=== PATIENT | female | born 1955 | race Hispanic/Latino ===

== ENCOUNTER 2022-07-10 02:42 | Emergency (ER) | payer MEDICARE ==
[~2022-07-10] VITALS: Ht 165.1 cm; Wt 89.8 kg
[2022-07-10 03:15] LABS: BASOPHILS % (AUTO) 0.7 % (0.0-5.0); EOSINOPHILS % (AUTO) 3.1 % (0.0-8.0); HEMATOCRIT 43.3 % (36-48); LYMPHOCYTES % (AUTO) 28.3 % (21.0-51.0); MEAN CORPUSCULAR HEMOGLOBIN 28.2 pg (27.0-33.0); MEAN CORPUSCULAR HGB CONC 31.9 g/dL (32.0-36.0); MEAN CORPUSCULAR VOLUME 88.4 fL (79-99); MONOCYTES % (AUTO) 5.9 % (3.0-13.0); NEUTROPHILS % (AUTO) 61.5 % (40.0-77.0); PLATELET COUNT (AUTO) 237 K/uL (130-400); WHITE BLOOD COUNT (AUTO) 8.5 K/uL (4.8-10.8)
[2022-07-10 03:25] LABS: CARBON DIOXIDE 26 mmol/L (21-32); CHLORIDE 100 mmol/L (101-111); CREATININE 0.6 mg/dL (0.5-1.5); GLOMERULAR FILTR. RATE CALC 105 mL/min (>60); GLUCOSE,RANDOM 146 mg/dL (70-105); POTASSIUM 3.8 mmol/L (3.5-5.1); SODIUM SERUM 136 mmol/L (136-145); UREA NITROGEN, BLOOD 14 mg/dL (7-18)
[2022-07-10 03:29] LABS: APPEARANCE,URINE CLEAR (CLEAR); BILIRUBIN,URINE NEGATIVE (NEGATIVE); COLOR,URINE COLORLESS (YELLOW); GLUCOSE, URINE (UA) NEGATIVE (NEGATIVE); KETONES,URINE NEGATIVE (NEGATIVE); LEUKOCYTE ESTERASE ,URINE NEGATIVE Leu/uL (NEGATIVE); NITRATE,URINE NEGATIVE (NEGATIVE); OCCULT BLOOD,URINE NEGATIVE (NEGATIVE); PROTEIN,URINE NEGATIVE (NEGATIVE); UROBILINOGEN,URINE 0.2 mg/dL (0.2-1.0)
[2022-07-10 03:38] LABS: ALANINE AMINOTRANSFERASE 22 U/L (12-78); ALBUMIN 3.7 g/dL (3.5-5.0); AMMONIA < 10 umol/L (11-32); ASPARTATE AMINOTRANSFERASE 19 U/L (10-37); CREATINE KINASE, TOTAL 138 U/L (21-232); THYROID STIMULATING HORMONE 2.64 uIU/mL (0.36-3.74); TOTAL PROTEIN, SERUM 8.1 g/dL (6.0-8.3)
[2022-07-10] MEDS ORDERED: 0.9%NACL 1000ML 2,000 ML IV ONE (04:00)
[2022-07-10 05:11] VITALS: BP 133/57
== END 2022-07-10 05:48 | disposition home or self-care (01) ==
LOC: EDH 02:42
DX: G25.2 Other specified forms of tremor (principal); E16.2 Hypoglycemia, unspecified; E86.0 Dehydration; Z20.822 Contact with and (suspected) exposure to COVID-19
CPT/HCPCS: 99284; 84443; 82550; 83735; 84484; 80053; 82140; 85025; 87804 ×2; 82948; 83605; 84146; 81003; 36415; 87635; 71045; 96360; 96361; C9803; J7030